=== PATIENT | female | born 1965 | race African-American/Black ===

== ENCOUNTER 2017-02-17 14:17 | Inpatient (IN) ==
[2017-02-17] MEDS ORDERED: DEXTROSE 50% 25 GM/50 ML VIAL IV PRN ×2 (14:27)
[2017-02-17] MEDS ORDERED: GLUCAGON 1 MG VIAL IM PRN ×2 (14:27)
[2017-02-17] MEDS ORDERED: MORPHINE 2 MG/1 ML SYRINGE IV PRN (14:37)
--- NOTE | 2017-02-17 14:40 | Nephrology History & Physical ---
History of Present Illness Chief complaint: facial swelling, dental abscess History of present illness: Ms. De Los Santos is a 52 year old female with history of renal transplant for over 10 years with a creatinine that is 1 who had been doing well up until last week when she noticed swelling in her face. She went to her local dentist where she was found to have a dental abscess. She started on oral antibiotics however, the symptoms continued to worsen. There was no shortness of breath or chest pain. However she has noticed increased swelling of the left eye as well. She denies any fevers. Home Medications Medication Instructions Recorded Confirmed Type Aspirin [Ecotrin] 81 mg PO DAILY 05/03/15 05/14/15 History Clopidogrel [Plavix] 75 mg PO DAILY 05/03/15 05/14/15 History Colchicine [Colcrys] 0.6 mg PO DAILY 05/03/15 05/14/15 History Ergocalciferol (Vitamin D2) 2,000 unit PO DAILY 05/03/15 05/14/15 History [Vitamin D2] Furosemide Tab [Lasix Tab] 40 mg PO DAILY 05/03/15 05/14/15 History Glimepiride [Amaryl] 2 mg PO BID 05/03/15 05/14/15 History Lisinopril [Zestril] 20 mg PO BID 05/03/15 05/14/15 History Magnesium Chloride [Mag Delay] 64 mg PO TID 05/03/15 05/14/15 History Mycophenolate Mofetil [Cellcept] 1,000 mg PO BID 05/03/15 05/14/15 History Omeprazole [Prilosec] 40 mg PO BID 05/03/15 05/14/15 History Tacrolimus Cap [Prograf] 1 mg PO BID 05/03/15 05/14/15 History predniSONE TAB [PredniSONE] 5 mg PO DAILY 05/03/15 05/14/15 History Carvedilol [Coreg] 25 mg PO BID 05/09/15 05/21/15 History Estradiol [Estradiol Tab] 2 mg PO 05/09/15 05/14/15 History HYDROcodone/ACETAMIN 5-325 [[place] 1 tablet PO Q6H PRN 05/09/15 05/21/15 History 5-325] Allergies Allergy/AdvReac Type Severity Reaction Status Date / Time vancomycin Allergy Verified 06/25/15 06:56 Review of Systems Constitutional: fatigue, lethargy, no anorexia, no chills Eyes: left: bulging eye Nose, mouth and throat: nasal congestion, neck pain, sinus pressure, other ( facial swelling, pain,) Cardiovascular: no chest pain at rest, no chest pain with activity Respiratory: no cough Gastrointestinal: no abdominal pain, no bloating Medical,Surgical,& Family Hx - Medical History Cardio: History of: CAD, Hypertension Neurology: History of: Migraine No history of: Seizures Endocrine: History of: Diabetes Mellitus (NIDDM) Rheumatology: History of;: Gout (toes) Respiratory: History of: Obstructive Sleep Apnea (c-pap) Renal: History of: Renal Problems (renal failure..was on dialysis for 7 years) Gastrointestinal: History of: GERD, Gastrointestinal Bleed, Hemorrhoids Reproductive: History of: Abnormal Pap Smear - Surgical History Cardiac Surgeries: Sugical HX of: Cardiac Catheterization, Cardiac Surgery (2 stents placed in 2013-in [place]-dr. oliveira) Thoracic Surgeries: Surgical HX of;: Kidney (Renal Surgery) (2002 kidney transplant), Organ Transplant (kidney) Abdominal Surgeries: Surgical HX of: Appendectomy, Colonoscopy (2010), EGD Patient denies: Cholecystectomy Reproductive Surgeries: Surgical HX of;: Hysterectomy - Family History Family History: Reports;: Family Diabetes (mother,sisters), Family Hypertension (mother), Family Stroke (father) - Social History Smoking Status: Never smoker Exam - Nephrology - Vital Signs Exam: Facial swelling oropharynx abscess of the upper gumline Poor dentition - General Appearance General appearance: well-developed, moderate distress Neck: no JVD Respiratory: clear Cardiology: regular rate, regular rhythm Gastrointestinal: normoactive bowel sounds, no tenderness, no guarding Integumentary: no rash Neurologic: alert and oriented x3, CN 3-12 intact Musculoskeletal: no deformities Psychiatric: mood/affect appropriate, cooperative Assessment and Plan (1) Renal transplant recipient Status: Chronic (2) Dental abscess Status: Acute Assessment and plan: Broad spectrum antibiotics Consult to Dr. Jasso CT of the neck, nasopharynx, malliary sinuses (3) Hypertension Status: Chronic (4) Gout Status: Chronic
[2017-02-17 17:04] LABS: Basophils % 0.1 % (0.0-0.8); Eosinophils % 0.3 % (0.00-10.9); Hematocrit 37.8 VOL% (35.7-47.0); Hemoglobin 11.7 GM/DL (12.0-16.0); Immature Granulocytes % 0.4 %; Immature Granulocytes Absolute 0.03 #; Lymphocytes # 1.6 10*3/uL (1.4-4.0); Lymphocytes % 21.8 % (21.3-54.2); Mean Corpuscular Hemoglobin 29 PG (27-34); Mean Corpuscular Volume 93.3 FL (87-102); Mean Platelet Volume 12.3 FL (9.6-12.0); Monocytes # 0.7 10*3/uL (0.11-0.8); Monocytes % 10.1 % (1.7-12.7); Neutrophils # 4.9 10*3/uL (1.4-7.4); Neutrophils % 67.3 % (38.7-73.9); Platelet Count 176 T/CUMM (130-400); Red Blood Count 4.05 MC/CUMM (3.8-5.5); Red Cell Distribution Width 11.9 % (9.3-17.3); White Blood Count 7.2 T/CUMM (4-12)
[2017-02-17 17:22] LABS: Albumin 2.9 G/DL (3.4-5.0); Bilirubin,Total 0.6 MG/DL (0.2-1.0); Calcium 8.8 MG/DL (8.5-10.1); Osmolality,Calculated 277.7 MOS/KG (273-304); Potassium 3.4 MMOL/L (3.5-5.1); Total Protein 6.5 G/DL (6.4-8.3)
[2017-02-17] MEDS: SODIUM CHLORIDE 0.45% 1,000 ML IV SCH (17:23)
[2017-02-17] MEDS: ALBUTEROL/IPRATROPIUM 3 ML NEB RESP TX SCH ×3 (17:57→23:51)
--- NOTE | 2017-02-17 18:07 | CT Report ---
CT soft tissue neck wo con Indication: Dental abscess. Facial swelling. CT NECK without CONTRAST DLP: 351 mGy*cm. One or more of the following dose reduction techniques was used: Automated exposure control, adjustment of the mA and/or kV according the patient size, or use of iterative reconstruction techniques. Comparison: None Technique: Axial noncontrast CT images of the neck were obtained. Findings:There is a 14 x 28 mm density along the left maxillary ridge, presumably the above-mentioned abscess. Severe mucosal thickening of the left maxillary sinus is present, and there appears to be some mild bony erosion of the lateral alveolar ridge of the maxilla adjacent to the presumed abscess pocket. The right maxillary sinus, ethmoid, frontal and sphenoid air cells are clear. Mastoid air cells are clear as well. Mandible is intact. Temporomandibular joints are probably aligned. Impression: Periodontal abscess and mild bony erosion adjacent to the left maxillary alveolar ridge. Left maxillary sinusitis, relatively severe. PROCEDURE INTERPRETED AT [facility] DEPARTMENT OF RADIOLOGY Final Report Signed by: Chester Jenkins M.D.
--- NOTE | 2017-02-17 18:10 | XRay Report ---
XR chest 2V Indication: Shortness of breath. Chest 2 views: Comparison 03/24/2012. Heart size and mediastinal contour are normal. Lungs are hypoinflated but generally clear, except for minimal bibasilar atelectasis. Pleural spaces are clear. Bones are intact. Impression: Mild pulmonary hypoinflation with atelectasis. PROCEDURE INTERPRETED AT [facility] DEPARTMENT OF RADIOLOGY Final Report Signed by: Chester Jenkins M.D.
--- NOTE | 2017-02-17 18:10 | CT Report ---
CT mastoids wo con Indication: Facial swelling. Left periodontal maxillary abscess. CT mastoids without contrast Technique: Axial thin cut CT images through the temporal bones were obtained with coronal and sagittal reconstructions. Comparison: None. Findings: Nodular mucosal thickening of the left maxillary sinus is relatively severe anteriorly. There is a trace amount of mucosal thickening at the floor of the right maxillary sinus. Mastoid air cells are clear. Middle ear structures are well defined bilaterally, with normal auditory ossicles present. No evidence of cholesteatoma. Both scutum are well-defined in the attics are clear. No dehiscence of the inner table. Semicircular canals and cochlea are unremarkable and bilaterally symmetric. Impression: 1. Normal appearing mastoid air cells and middle ears structures. 2. Relatively severe left and minimal right maxillary sinusitis. PROCEDURE INTERPRETED AT [facility] DEPARTMENT OF RADIOLOGY Final Report Signed by: Chester Jenkins M.D.
[2017-02-17] MEDS: PIPERACILLIN/TAZOBACTAM 3,375 MG in SODIUM CHLORIDE 0.9% 100 ML IV SCH (18:24)
[2017-02-17] MEDS: MAGNESIUM CHLORIDE 64 MG TABLET PO SCH (20:46)
[2017-02-17] MEDS: PANTOPRAZOLE 40 MG TABLET PO SCH (20:47)
[2017-02-17] MEDS: SIMVASTATIN 20 MG TABLET PO SCH (20:47)
[2017-02-17] MEDS: amLODIPine 5 MG TABLET PO SCH (20:47)
[2017-02-17] MEDS: CARVEDILOL 25 MG TABLET PO SCH (20:47)
[2017-02-17] MEDS: MYCOPHENOLATE MOFETIL 1000 MG PO SCH (20:51)
[2017-02-17] MEDS: TACROLIMUS 0.5 MG PO SCH (20:52)
[2017-02-17] MEDS ORDERED: ENOXAPARIN 30 MG/0.3 ML SYRINGE SUBCUT SCH (21:00)
[2017-02-17 21:47] LABS: Apearance,Urine Slightly Hazy (Clear); Bacteria,Urine Occasional /HPF (Few); Bilirubin,Urine Negative (Negative); Blood, Urine Negative (Negative); Glucose,Urine (UA) Negative (Negative); Ketones,Urine Negative (Negative); Mucus,Urine Occasional /LPF (Occasional); Nitrite,Urine Negative (Negative); Protein,Urine >=500 MG/DL; RBC,Urine 4 /HPF (0-4); Renal Epithelial Cells,Urine Occasional /HPF (<1); Squamous Epithelial Cell,Urine Occasional /HPF (0-10); Urine Color Yellow (Yellow); Urine Urobilinogen < 2.0 EU/DL (0.2-1.0); WBC,Urine 7 /HPF (0-6)
[2017-02-18] MEDS: PIPERACILLIN/TAZOBACTAM 3,375 MG in SODIUM CHLORIDE 0.9% 100 ML IV SCH ×3 (00:25→16:36)
[2017-02-18] MEDS: ALBUTEROL/IPRATROPIUM 3 ML NEB RESP TX SCH ×6 (04:40→23:39)
[2017-02-18 05:28] LABS: Basophils % 0.2 % (0.0-0.8); Eosinophils % 0.3 % (0.00-10.9); Hematocrit 33.2 VOL% (35.7-47.0); Hemoglobin 10.7 GM/DL (12.0-16.0); Immature Granulocytes % 0.3 %; Immature Granulocytes Absolute 0.02 #; Lymphocytes # 2.2 10*3/uL (1.4-4.0); Lymphocytes % 36.3 % (21.3-54.2); Mean Corpuscular HGB Conc 32.2 GM/DL (32-36); Mean Corpuscular Hemoglobin 29 PG (27-34); Mean Corpuscular Volume 88.8 FL (87-102); Mean Platelet Volume 12.5 FL (9.6-12.0); Monocytes # 0.7 10*3/uL (0.11-0.8); Monocytes % 10.9 % (1.7-12.7); Neutrophils # 3.2 10*3/uL (1.4-7.4); Platelet Count 154 T/CUMM (130-400); Red Blood Count 3.74 MC/CUMM (3.8-5.5); Red Cell Distribution Width 11.9 % (9.3-17.3); White Blood Count 6.1 T/CUMM (4-12)
[2017-02-18 06:03] LABS: Calcium 8.6 MG/DL (8.5-10.1); Osmolality,Calculated 276.8 MOS/KG (273-304)
[2017-02-18] MEDS: SODIUM CHLORIDE 0.45% 1,000 ML IV SCH ×2 (09:09)
[2017-02-18] MEDS: PANTOPRAZOLE 40 MG TABLET PO SCH ×2 (09:10→21:34)
[2017-02-18] MEDS: MYCOPHENOLATE MOFETIL 1000 MG PO SCH ×2 (09:11→21:36)
[2017-02-18] MEDS: CARVEDILOL 25 MG TABLET PO SCH ×2 (09:11→21:34)
[2017-02-18] MEDS: TACROLIMUS 0.5 MG PO SCH ×2 (09:11→21:36)
[2017-02-18] MEDS: MAGNESIUM CHLORIDE 64 MG TABLET PO SCH ×3 (09:11→21:33)
[2017-02-18] MEDS: ASPIRIN EC 81 MG TABLET PO SCH (09:11)
[2017-02-18] MEDS: ERGOCALCIFEROL 1000 UNIT PO SCH (09:12)
[2017-02-18] MEDS: amLODIPine 5 MG TABLET PO SCH ×2 (09:24→21:34)
[2017-02-18] MEDS: ESTRADIOL 1 MG TABLET PO SCH (09:24)
--- NOTE | 2017-02-18 10:54 | Physician Query Form ---
CLICK EDIT DOCUMENT TO SELECT QUERY ANSWER --> OK --> SIGN Cristina Andrew RN Clinical Motor Grader Operator W) [phone] (f) [phone] [email or web address] PROVIDERS: Make your selection(s) from the choices in EACH section by typing an "x" and enter comments in the comment section. Please use your independent medical judgment in providing your response. This request does not imply that any particular answer is desired or expected. CLINICAL INDICATORS: (Providers should not edit this section) Height: 5ft 11in Weight: 287 lbs Financial Foundations Representative BMI: 40.0 Cash Applications Coordinator Notes: Class 3 obesity If applicable, please provide an associated diagnosis related to the abnormal BMI: BMI of 40 or greater: ( ) Overweight (x ) Obesity ( ) Morbid//Severe Obesity ( ) Obesity with Alveolar Hypoventilation ( ) Weight Gain ( ) BMI is not significant ( ) Other, please specify: ( ) Clinically unable to determine COMMENTS: Use of terms such as suspected, likely, or probable (associated with a specific diagnosis that is being evaluated, monitored, or treated as if it exists) are acceptable and can be restated in the discharge summary if not ruled out. [facility]
--- NOTE | 2017-02-18 16:28 | General Surgery Consult Note ---
Assessment and Plan - Time spent with patient Time spent with patient: Less than 30 minutes (1) Dental abscess Status: Acute Assessment and plan: 58 yo F with left canine space abscess likely due to carious teeth #12,13 requiring Incision and drainage and extraction of teeth #12, 13 in OR tomorrow 1. NPO at midnight 2. cont iv antibiotics, pain control per Dr. Duran 3. Will consent for Incision and drainage of left maxillary canine space abscess and extraction of teeth #12 and 13 4. Will schedule for 02/19 around noon Current Visit: Yes History of Present Illness Chief complaint: left facial swelling History of present illness: Ms. De Los Santos is a 52 year old female with 5 days of left facial swelling, initially worsening but improved since admission yesterday while on IV antibiotics. No dysphagia, no dyspnea, no f/c. Had seen local dentist who recommended extraction of teeth #12,13 but patient never had it done. Home Medications Medication Instructions Recorded Confirmed Type Aspirin [Ecotrin] 81 mg PO DAILY 05/03/15 02/17/17 History Colchicine [Colcrys] 0.6 mg PO DAILY PRN 05/03/15 02/17/17 History Ergocalciferol (Vitamin D2) 1,000 unit PO DAILY 05/03/15 02/17/17 History [Vitamin D2] Furosemide Tab [Lasix Tab] 20 mg PO BID 05/03/15 02/17/17 History Magnesium Chloride [Mag Delay] 64 mg PO TID 05/03/15 02/17/17 History Mycophenolate Mofetil [Cellcept] 1,000 mg PO BID 05/03/15 02/17/17 History Omeprazole [Prilosec] 40 mg PO BID 05/03/15 02/17/17 History Tacrolimus Cap [Prograf] 0.5 mg PO BID 05/03/15 02/17/17 History Carvedilol [Coreg] 25 mg PO BID 05/09/15 02/17/17 History Estradiol [Estradiol Tab] 2 mg PO DAILY 05/09/15 02/17/17 History Amoxicillin/Potassium Clav 875 mg PO BID 02/17/17 02/17/17 History [Amox-Clav 875-125 mg Tablet] Hydrocodone/Acetaminophen 1 tablet PO Q4HR PRN 02/17/17 02/17/17 History [Hydrocodon-Acetaminoph 7.5-325] Simvastatin 20 mg PO BEDTIME 02/17/17 02/17/17 History amLODIPine [Norvasc] 5 mg PO BID 02/17/17 02/17/17 History metFORMIN [Glucophage] 500 mg PO DAILY W/SUPPER 02/17/17 02/17/17 History Allergies Allergy/AdvReac Type Severity Reaction Status Date / Time vancomycin Allergy Verified 05/03/15 06:56 Medical,Surgical,& Family Hx - Medical History Cardio: History of: CAD, Hypertension Neurology: History of: Cerebrovascular Accident, Migraine No history of: Seizures Endocrine: History of: Diabetes Mellitus (NIDDM) Rheumatology: History of;: Gout (toes) Respiratory: History of: Asthma, Obstructive Sleep Apnea (c-pap) Renal: History of: Renal Problems (renal failure..was on dialysis for 7 years) Gastrointestinal: History of: GERD, Gastrointestinal Bleed, Hemorrhoids Reproductive: History of: Abnormal Pap Smear - Surgical History Cardiac Surgeries: Sugical HX of: Cardiac Catheterization, Cardiac Surgery (2 stents placed in 2013-in [place]-dr. oliveira) Thoracic Surgeries: Surgical HX of;: Kidney (Renal Surgery) (2002 kidney transplant), Organ Transplant (kidney) Abdominal Surgeries: Surgical HX of: Appendectomy, Colonoscopy (2010), EGD Patient denies: Cholecystectomy Reproductive Surgeries: Surgical HX of;: Hysterectomy - Family History Family History: Reports;: Family Diabetes (mother,sisters), Family Hypertension (mother), Family Stroke (father) - Social History Smoking Status: Never smoker Frequency of Alcohol Use: None Type of Drug Use: None - EENT Nose, mouth and throat: Present: other (left facial swelling, mildly involving left infraorbital region, mild left maxillary vestibular swelling with drainage) Exam - Constitutional Vitals: Period Temp Pulse Resp BP Sys/Correa Pulse Ox Last 24 Hr 97.4 F-99.6 F 70-99 18-20 125-144/64-84 90-98 General appearance: no acute distress - Eye Eye exam: Present: EOMI, periorbital swelling (left infraorbital region) - ENT ENT exam: Present: other (left facial swelling with tenderness to palpation; mild erythema; no warmth) Mouth exam: Present: other (carious teeht #12 and 13 with left maxillary vestibular swelling and tenderness on palpation, no drainage) Results - Labs CBC & BMP: 02/18/17 05:01 02/18/17 05:01 Lab Results: I have reviewed the past 24 hour labs - Impressions 52 yo F with 5 day history of left canine space abscess likely due to carious teeth #12,13 which will require extraction of teeth and I&D
[2017-02-18] MEDS: metFORMIN 500 MG TABLET PO SCH (16:36)
--- NOTE | 2017-02-18 17:43 | Ophthalmology Consultation ---
Assessment and Plan - Time spent with patient Time spent with patient: Less than 30 minutes (1) Preseptal cellulitis of left eye Status: Acute Assessment and plan: Mild preseptal cellulitis of the left eye and face. Origin is most likely dental abscess. Patient reports subjective improvement since starting IV antibiotics. No signs of orbital extension or ocular involvement on exam. Recommendations: Continue IV Zosyn. Warm compresses to left periorbital area. Will follow along until discharge. Current Visit: Yes History of Present Illness Chief complaint: Swelling of periorbital area OS. History of present illness: Ms. De Los Santos is a 52 year old female admitted with a dental abscess and associated swelling of her face, including periorbital area OS. She denies any diplopia or orbital pain. She is having some blurred vision but wears corrective spectacles and does not have those with her today. She describes a slight bit of tenderness to the left upper eyelid and periorbital area. She states that the edema has improved since starting the IV antibiotics. Home Medications Medication Instructions Recorded Confirmed Type Aspirin [Ecotrin] 81 mg PO DAILY 05/03/15 02/17/17 History Colchicine [Colcrys] 0.6 mg PO DAILY PRN 05/03/15 02/17/17 History Ergocalciferol (Vitamin D2) 1,000 unit PO DAILY 05/03/15 02/17/17 History [Vitamin D2] Furosemide Tab [Lasix Tab] 20 mg PO BID 05/03/15 02/17/17 History Magnesium Chloride [Mag Delay] 64 mg PO TID 05/03/15 02/17/17 History Mycophenolate Mofetil [Cellcept] 1,000 mg PO BID 05/03/15 02/17/17 History Omeprazole [Prilosec] 40 mg PO BID 05/03/15 02/17/17 History Tacrolimus Cap [Prograf] 0.5 mg PO BID 05/03/15 02/17/17 History Carvedilol [Coreg] 25 mg PO BID 05/09/15 02/17/17 History Estradiol [Estradiol Tab] 2 mg PO DAILY 05/09/15 02/17/17 History Amoxicillin/Potassium Clav 875 mg PO BID 02/17/17 02/17/17 History [Amox-Clav 875-125 mg Tablet] Hydrocodone/Acetaminophen 1 tablet PO Q4HR PRN 02/17/17 02/17/17 History [Hydrocodon-Acetaminoph 7.5-325] Simvastatin 20 mg PO BEDTIME 02/17/17 02/17/17 History amLODIPine [Norvasc] 5 mg PO BID 02/17/17 02/17/17 History metFORMIN [Glucophage] 500 mg PO DAILY W/SUPPER 02/17/17 02/17/17 History Allergies Allergy/AdvReac Type Severity Reaction Status Date / Time vancomycin Allergy Verified 05/03/15 06:56 Medical,Surgical,& Family Hx - Medical History Cardio: History of: CAD, Hypertension Neurology: History of: Cerebrovascular Accident, Migraine No history of: Seizures Endocrine: History of: Diabetes Mellitus (NIDDM) Rheumatology: History of;: Gout (toes) Respiratory: History of: Asthma, Obstructive Sleep Apnea (c-pap) Renal: History of: Renal Problems (renal failure..was on dialysis for 7 years) Gastrointestinal: History of: GERD, Gastrointestinal Bleed, Hemorrhoids Reproductive: History of: Abnormal Pap Smear - Surgical History Cardiac Surgeries: Sugical HX of: Cardiac Catheterization, Cardiac Surgery (2 stents placed in 2013-in [place]-dr. oliveira) Thoracic Surgeries: Surgical HX of;: Kidney (Renal Surgery) (2002 kidney transplant), Organ Transplant (kidney) Abdominal Surgeries: Surgical HX of: Appendectomy, Colonoscopy (2010), EGD Patient denies: Cholecystectomy Reproductive Surgeries: Surgical HX of;: Hysterectomy - Family History Family History: Reports;: Family Diabetes (mother,sisters), Family Hypertension (mother), Family Stroke (father) - Social History Smoking Status: Never smoker Frequency of Alcohol Use: None Type of Drug Use: None Ophthalmology Exam - Constitutional Vitals: Vital Signs Temp Pulse Resp BP Pulse Ox 97.4 F L 77 18 144/68 97 02/18/17 15:54 02/18/17 15:54 02/18/17 15:54 02/18/17 15:54 02/18/17 15:54 Intake and Output 02/18/17 02/18/17 02/18/17 07:59 15:59 23:59 Intake Total 1220 / 1220 100 / 100 Output Total 400 / 400 Balance 820 / 820 100 / 100 Intake: IV 1100 / 1100 100 / 100 Zosyn 3,375 mg In Ns 100 100 / 100 100 / 100 ml @ 25 mls/hr IV Q8H JUAN Rx#:[id number] 1/2Ns 1,000 ml @ 125 mls/ 1000 / 1000 hr IV .Q8H JUAN Rx#: [id number] Oral 120 / 120 Output: Urine 400 / 400 Other: Voiding Method Toilet Toilet # Voids 3 # Bowel Movements 0 General appearance: no acute distress - Eye Eye exam: Present: EOMI, periorbital swelling (Edema and erythema of the left periorbital area.), other Pupils: Present: LIZ - Expanded Eye Exam Eye Exam Eyelids: left: erythema, swelling eyelids (Mild periorbital edema of the left eye.) Pupils: Bilateral: regular, round, reactive (No relative afferent pupillary defect.) Sclera: bilateral: normal inspection, injection (No injection or chemosis) Anterior chamber: bilateral: normal inspection Posterior chamber: bilateral: deferred Results - Labs CBC & BMP: 02/18/17 05:01 02/18/17 05:01
[2017-02-18] MEDS ORDERED: POTASSIUM CHLORIDE 20 MEQ TABLET PO ONE (20:12)
--- NOTE | 2017-02-18 20:15 | Nephrology Progress Note ---
Nephrology - PN: Subj Interval history: The patient is sitting up resting comfortably. Facial swelling continues to show signs of improvement no fevers or chills. She has been evaluated by oral surgery and is scheduled for surgery on tomorrow. Appreciate input from Dr. Burton as well as from Dr. Dean. Will discontinue prophylactic dose of Lovenox in preparation for surgery. Exam (PN)-Nephrology - Vital Signs Vital signs: Period Temp Pulse Resp BP Sys/Correa Pulse Ox Last 24 Hr 97.4 F-99.2 F 70-99 18-20 125-144/64-71 90-99 - General Appearance General appearance: well-developed, well-nourished EENT: ATNC Neck: supple Respiratory: clear Cardiology: no edema, regular rate, regular rhythm Gastrointestinal: normoactive bowel sounds, no tenderness Integumentary: warm and dry Neurologic: alert and oriented x3, CN 3-12 intact Musculoskeletal: no clubbing Psychiatric: mood/affect appropriate - Lab 02/18/17 05:01 02/18/17 05:01 Most recent lab results Calcium 8.6 MG/DL (8.5-10.1) 02/18/17 05:01 Assessment and Plan (1) Renal transplant recipient Status: Chronic Current Visit: Yes (2) Dental abscess Status: Acute Assessment and plan: Broad spectrum antibiotics Consult to Dr. Jasso Current Visit: Yes (3) Hypertension Status: Chronic Current Visit: Yes (4) Gout Status: Chronic Current Visit: Yes (5) Hypokalemia Status: Acute Assessment and plan: Supplement potassium with 40 mEq p.o. tonight. At potassium and IV fluids. Check BMP and magnesium in a.m. Current Visit: Yes
[2017-02-18] MEDS: SIMVASTATIN 20 MG TABLET PO SCH (21:34)
[2017-02-18] MEDS: CHLORHEXIDINE 0.12% ORAL RINSE 60 ML BOTTLE SWISH/SPIT SCH (21:34)
[2017-02-18] MEDS: SODIUM CHLOR 0.45% KCL 20 MEQ 20 MEQ/1,000 ML BAG IV SCH (21:39)
[2017-02-19] MEDS: SODIUM CHLOR 0.45% KCL 20 MEQ 20 MEQ/1,000 ML BAG IV SCH ×2 (00:13→09:20)
[2017-02-19] MEDS: PIPERACILLIN/TAZOBACTAM 3,375 MG in SODIUM CHLORIDE 0.9% 100 ML IV SCH ×4 (00:14→23:49)
[2017-02-19] MEDS: SODIUM CHLORIDE 0.45% 1,000 ML IV SCH (02:22)
[2017-02-19] MEDS: ALBUTEROL/IPRATROPIUM 3 ML NEB RESP TX SCH ×6 (03:38→23:41)
[2017-02-19 06:09] LABS: Basophils % 0.2 % (0.0-0.8); Eosinophils # 0.1 10*3/uL (0.0-0.87); Eosinophils % 2.5 % (0.00-10.9); Immature Granulocytes % 0.2 %; Immature Granulocytes Absolute 0.01 #; Lymphocytes # 1.6 10*3/uL (1.4-4.0); Lymphocytes % 32.2 % (21.3-54.2); Mean Corpuscular HGB Conc 32.4 GM/DL (32-36); Mean Corpuscular Hemoglobin 29 PG (27-34); Mean Corpuscular Volume 89.2 FL (87-102); Monocytes # 0.6 10*3/uL (0.11-0.8); Neutrophils # 2.6 10*3/uL (1.4-7.4); Neutrophils % 52.9 % (38.7-73.9); Platelet Count 163 T/CUMM (130-400); Red Blood Count 3.81 MC/CUMM (3.8-5.5); Red Cell Distribution Width 11.5 % (9.3-17.3); White Blood Count 4.8 T/CUMM (4-12)
[2017-02-19 06:40] LABS: Calcium 8.9 MG/DL (8.5-10.1); Magnesium 1.5 MG/DL (1.8-2.4); Osmolality,Calculated 280.4 MOS/KG (273-304); Potassium 3.6 MMOL/L (3.5-5.1)
[2017-02-19] MEDS ORDERED: MAGNESIUM SULF RIDER 2 GM in PREMIX 1 EACH IV ONE (08:00)
[2017-02-19] MEDS: ESTRADIOL 1 MG TABLET PO SCH (08:27)
[2017-02-19] MEDS: TACROLIMUS 0.5 MG PO SCH ×2 (08:28→20:17)
[2017-02-19] MEDS: MAGNESIUM CHLORIDE 64 MG TABLET PO SCH ×3 (08:28→20:10)
[2017-02-19] MEDS: ASPIRIN EC 81 MG TABLET PO SCH (08:28)
[2017-02-19] MEDS: MYCOPHENOLATE MOFETIL 1000 MG PO SCH ×2 (08:28→20:14)
[2017-02-19] MEDS: PANTOPRAZOLE 40 MG TABLET PO SCH ×2 (08:28→20:10)
[2017-02-19] MEDS: CHLORHEXIDINE 0.12% ORAL RINSE 60 ML BOTTLE SWISH/SPIT SCH ×2 (08:28→20:16)
[2017-02-19] MEDS: CARVEDILOL 25 MG TABLET PO SCH ×2 (08:28→20:10)
[2017-02-19] MEDS: amLODIPine 5 MG TABLET PO SCH ×2 (08:28→20:10)
[2017-02-19] MEDS: ERGOCALCIFEROL 1000 UNIT PO SCH (08:29)
--- NOTE | 2017-02-19 10:59 | EKG Report ---
Stationary ECG Study [facility] Test Date: 02/19/2017 11:00:16 AM Pat Name: ELIOT ANN Department: Room: 542 Gender: F Clinical Data Manager: KEMI : 1965 Requested by: Geoff De La Rosa Order Number: [id number] Reading MD: ANG VARGAS Intervals Shorter Rate: 72 P: 70 WA: 184 QRS: 14 QRSD: 89 T: -24 QT: 352 QTc: 376 Interpretive Statements SINUS RHYTHM NONSPECIFIC T-WAVE ABNORMALITY Electronically Signed On 02-20-17 07:26:51 CDT by ANG VARGAS [email or web address]
[2017-02-19] MEDS ORDERED: LIDOCAINE 2%/EPI 20 ML VIAL ONE (12:08)
--- NOTE | 2017-02-19 12:49 | Operative Note ---
Date of procedure: 02/19/17 Pre-op diagnosis: left maxillary canine space abcess and carious teeth #12,13 Post-op diagnosis: same Procedure: Incision & drainage left maxillary canine space abscess, surgical extraction of teeth #12,13 Anesthesia: PATRICA Surgeon / Physician: Willy Jasso Estimated blood loss: none Specimens: other (teeth #12,13) Condition: stable Disposition: floor Results - Labs CBC & BMP: 02/19/17 05:52 02/19/17 05:52 Discharge Plan - Discharge Medications No Action Ergocalciferol (Vitamin D2) [Vitamin D2] 1,000 unit PO DAILY Tacrolimus Cap [Prograf] 0.5 mg PO BID Omeprazole [Prilosec] 40 mg PO BID Magnesium Chloride [Mag Delay] 64 mg PO TID Furosemide Tab [Lasix Tab] 20 mg PO BID Mycophenolate Mofetil [Cellcept] 1,000 mg PO BID Colchicine [Colcrys] 0.6 mg PO DAILY PRN PRN Reason: Gout Aspirin [Ecotrin] 81 mg PO DAILY Carvedilol [Coreg] 25 mg PO BID Estradiol [Estradiol Tab] 2 mg PO DAILY metFORMIN [Glucophage] 500 mg PO DAILY W/SUPPER Hydrocodone/Acetaminophen [Hydrocodon-Acetaminoph 7.5-325] 1 tablet PO Q4HR PRN PRN Reason: Pain amLODIPine [Norvasc] 5 mg PO BID Amoxicillin/Potassium Clav [Amox-Clav 875-125 mg Tablet] 875 mg PO BID Simvastatin 20 mg PO BEDTIME - Follow Up or Referral - Forms/Instructions
[2017-02-19] MEDS ORDERED: SUCCINYLCHOLINE 200 MG/10 ML VIAL ONE (13:00)
[2017-02-19] MEDS ORDERED: ROCURONIUM 100 MG/10 ML VIAL IV ONE (13:00)
[2017-02-19] MEDS ORDERED: PROPOFOL 200 MG/20 ML VIAL IV ONE (13:00)
[2017-02-19] MEDS ORDERED: LIDOCAINE 1% 5 ML VIAL ONE (13:00)
[2017-02-19] MEDS ORDERED: ONDANSETRON 4 MG/2 ML VIAL ONE (13:00)
[2017-02-19] MEDS ORDERED: fentaNYL 100 MCG/2 ML VIAL ONE (13:18)
[2017-02-19] MEDS ORDERED: MIDAZOLAM 2 MG/2 ML VIAL ONE (13:19)
[2017-02-19] MEDS ORDERED: ALBUTEROL/IPRATROPIUM 3 ML NEB RESP TX ONE (13:22)
[2017-02-19] MEDS: metFORMIN 500 MG TABLET PO SCH (16:04)
[2017-02-19] MEDS: SIMVASTATIN 20 MG TABLET PO SCH (20:10)
--- NOTE | 2017-02-19 22:32 | Nephrology Progress Note ---
Nephrology - PN: Subj Interval history: Patient is resting comfortably. Tolerated oral surgery today. Exam (PN)-Nephrology - Vital Signs Vital signs: Period Temp Pulse Resp BP Sys/Correa Pulse Ox Last 24 Hr 97.0 F-98.9 F 69-93 16-20 134-161/67-98 92-99 Exam: Left-sided facial swelling noted - General Appearance General appearance: well-developed, well-nourished EENT: ATNC Neck: supple Respiratory: clear Cardiology: regular rate, regular rhythm Gastrointestinal: normoactive bowel sounds, no tenderness, no guarding Musculoskeletal: no clubbing Psychiatric: mood/affect appropriate - Lab 02/19/17 05:52 02/19/17 05:52 Most recent lab results Calcium 8.9 MG/DL (8.5-10.1) 02/19/17 05:52 Magnesium 1.5 MG/DL (1.8-2.4) L 02/19/17 05:52 Assessment and Plan (1) Renal transplant recipient Status: Chronic Current Visit: Yes (2) Dental abscess Status: Acute Assessment and plan: Broad spectrum antibiotics Now status post oral surgery for abscess drainage. Current Visit: Yes (3) Hypertension Status: Chronic Current Visit: Yes (4) Gout Status: Chronic Current Visit: Yes (5) Hypokalemia Status: Acute Assessment and plan: At potassium and IV fluids. Check BMP in a.m. Current Visit: Yes
[2017-02-20] MEDS: SODIUM CHLOR 0.45% KCL 20 MEQ 20 MEQ/1,000 ML BAG IV SCH ×2 (00:27→08:47)
[2017-02-20] MEDS: ALBUTEROL/IPRATROPIUM 3 ML NEB RESP TX SCH ×6 (02:42→23:30)
[2017-02-20 07:18] LABS: Calcium 8.9 MG/DL (8.5-10.1); Osmolality,Calculated 277.5 MOS/KG (273-304); Potassium 3.8 MMOL/L (3.5-5.1)
[2017-02-20] MEDS: ASPIRIN EC 81 MG TABLET PO SCH (08:16)
[2017-02-20] MEDS: MAGNESIUM CHLORIDE 64 MG TABLET PO SCH ×3 (08:16→21:22)
[2017-02-20] MEDS: PIPERACILLIN/TAZOBACTAM 3,375 MG in SODIUM CHLORIDE 0.9% 100 ML IV SCH ×3 (08:16→23:55)
[2017-02-20] MEDS: CARVEDILOL 25 MG TABLET PO SCH ×2 (08:17→21:21)
[2017-02-20] MEDS: MYCOPHENOLATE MOFETIL 1000 MG PO SCH ×2 (08:17→21:22)
[2017-02-20] MEDS: CHLORHEXIDINE 0.12% ORAL RINSE 60 ML BOTTLE SWISH/SPIT SCH ×2 (08:17→21:23)
[2017-02-20] MEDS: PANTOPRAZOLE 40 MG TABLET PO SCH ×2 (08:17→21:22)
[2017-02-20] MEDS: amLODIPine 5 MG TABLET PO SCH ×2 (08:17→21:22)
[2017-02-20] MEDS: ESTRADIOL 1 MG TABLET PO SCH (08:17)
[2017-02-20] MEDS: TACROLIMUS 0.5 MG PO SCH ×2 (08:25→21:24)
[2017-02-20] MEDS: ERGOCALCIFEROL 1000 UNIT PO SCH (08:49)
--- NOTE | 2017-02-20 08:59 | Anesthesia ---
Anesthesia Post OP - Post Ansesthetic Evaluation Patient seen in post op: Yes Resp: within normal limits CV: within normal limits Mental: within normal limits Temp: within normal limits [id number]: within normal limits Nausea and Vomiting: within normal limits Pain: within normal limits
--- NOTE | 2017-02-20 09:01 | Nephrology Progress Note ---
Nephrology - PN: Subj Interval history: Patient is doing acceptable. Swelling is slowly improving. No fevers or chills. Metabolic panel is acceptable. Will continue with half-normal saline at 50 cc an hour. Continue antibiotics. Patient will be here through the weekend. BMP on Thursday. Exam (PN)-Nephrology - Vital Signs Vital signs: Period Temp Pulse Resp BP Sys/Correa Pulse Ox Last 24 Hr 97.0 F-98.8 F 72-93 16-20 130-161/69-98 90-99 Exam: Left facial swelling. There is swelling of the left eye. No injection but eyelids are swollen. - General Appearance General appearance: well-developed, well-nourished Neck: supple Respiratory: clear Cardiology: no edema, regular rate, regular rhythm Gastrointestinal: normoactive bowel sounds, no masses Neurologic: alert and oriented x3, CN 3-12 intact Musculoskeletal: no clubbing Psychiatric: mood/affect appropriate, cooperative - Lab 02/19/17 05:52 02/20/17 06:24 Most recent lab results Calcium 8.9 MG/DL (8.5-10.1) 02/20/17 06:24 Magnesium 1.5 MG/DL (1.8-2.4) L 02/19/17 05:52 Assessment and Plan (1) Renal transplant recipient Status: Chronic Current Visit: Yes (2) Dental abscess Status: Acute Assessment and plan: Broad spectrum antibiotics Now status post oral surgery for abscess drainage. Current Visit: Yes (3) Hypertension Status: Chronic Current Visit: Yes (4) Gout Status: Chronic Current Visit: Yes (5) Hypokalemia Status: Resolved Current Visit: Yes
[2017-02-20] MEDS: SODIUM CHLORIDE 0.45% 1,000 ML IV SCH (09:50)
[2017-02-20] MEDS: NEOMYCIN LEFT EYE SCH ×4 (10:48→21:26)
[2017-02-20] MEDS: POLYMYXIN LEFT EYE SCH ×4 (10:48→21:26)
[2017-02-20] MEDS: [UNRECOGNIZED DRUG - OTHER] LEFT EYE SCH ×4 (10:48→21:26)
--- NOTE | 2017-02-20 12:23 | Pathology Report from [facility] ---
ACCESSION # : [id number] PATIENT NAME : Alexandra Ann ORDERING DR : Willy Jasso DDS CLINICAL HX: Dental abscess POST-OP DX: Same SPECIMEN INFO: Teeth #12 & #13 GROSS DESCRIPTION: Specimen received in formalin labeled " ALEXANDRA ANN" consists of two teeth with decay noted. Submitted for gross exam only. DIAGNOSIS FOR ALEXANDRA ANN: Carious teeth (#12 & #13), gross only. SERVICE DATE: 02/19/2017 REPORT DATE: 02/20/2017 PATHOLOGIST: Kei Mcgowan M.D. [facility]
--- NOTE | 2017-02-20 14:14 | Ophthalmology Progress Note ---
Assessment and Plan - Time spent with patient Time spent with patient: Less than 30 minutes (1) Preseptal cellulitis of left eye Status: Acute Assessment and plan: Slowly improving with draining of dental abscess and IV abx. Recs: Broad spectrum abx. Artificial tears. Warm compresses. Current Visit: Yes Opthalmology - PN: Subj Interval history: Patient states vision is fine. No diplopia. C/O itching of left upper eyelid. Edema improving. Ophthalmology Exam - Constitutional Vitals: Vital Signs Temp Pulse Resp BP Pulse Ox 98.6 F 77 18 134/78 98 02/20/17 11:50 02/20/17 11:50 02/20/17 11:50 02/20/17 11:50 02/20/17 11:50 Intake and Output 02/19/17 02/20/17 02/20/17 23:59 07:59 15:59 Intake Total 460 / 460 250 / 250 490 / 490 Balance 460 / 460 250 / 250 490 / 490 Intake: IV 100 / 100 100 / 100 10 / 10 Zosyn 3,375 mg In Ns 100 100 / 100 100 / 100 ml @ 25 mls/hr IV Q8H JUAN Rx#:[id number] 1/2NS KCL 20 MEQ 20 meq 10 / 10 In 1,000 ml @ 75 mls/hr IV .[id number] JUAN Rx#: [id number] Oral 360 / 360 150 / 150 480 / 480 Other: Voiding Method Toilet Toilet Toilet # Voids 2 2 2 # Bowel Movements 0 0 General appearance: no acute distress - Eye Eye exam: Present: EOMI Pupils: Present: LIZ - Expanded Eye Exam Eye Exam Eyelids: left: erythema (Mild erythema ODILIA.), swelling eyelids (Mild edema ODILIA.) Pupils: Bilateral: regular, round, reactive (No RAPD) Sclera: bilateral: normal inspection (No chemosis.) Anterior chamber: bilateral: normal inspection Posterior chamber: bilateral: deferred Results - Labs CBC & BMP: 02/19/17 05:52 02/20/17 06:24
[2017-02-20] MEDS: metFORMIN 500 MG TABLET PO SCH (16:09)
[2017-02-20] MEDS: SIMVASTATIN 20 MG TABLET PO SCH (21:22)
[2017-02-21] MEDS: ALBUTEROL/IPRATROPIUM 3 ML NEB RESP TX SCH ×6 (05:25→23:23)
[2017-02-21] MEDS: SODIUM CHLORIDE 0.45% 1,000 ML IV SCH (08:42)
[2017-02-21] MEDS: PIPERACILLIN/TAZOBACTAM 3,375 MG in SODIUM CHLORIDE 0.9% 100 ML IV SCH ×3 (08:48→23:53)
[2017-02-21] MEDS: ESTRADIOL 1 MG TABLET PO SCH (08:49)
[2017-02-21] MEDS: ASPIRIN EC 81 MG TABLET PO SCH (08:49)
[2017-02-21] MEDS: amLODIPine 5 MG TABLET PO SCH ×2 (08:49→20:39)
[2017-02-21] MEDS: CHLORHEXIDINE 0.12% ORAL RINSE 60 ML BOTTLE SWISH/SPIT SCH ×2 (08:49→20:38)
[2017-02-21] MEDS: MAGNESIUM CHLORIDE 64 MG TABLET PO SCH ×3 (08:49→20:39)
[2017-02-21] MEDS: CARVEDILOL 25 MG TABLET PO SCH ×2 (08:50→20:39)
[2017-02-21] MEDS: PANTOPRAZOLE 40 MG TABLET PO SCH ×2 (08:50→20:39)
[2017-02-21] MEDS: TACROLIMUS 0.5 MG PO SCH ×2 (08:50→20:38)
[2017-02-21] MEDS: MYCOPHENOLATE MOFETIL 1000 MG PO SCH ×2 (08:50→20:37)
[2017-02-21] MEDS: ERGOCALCIFEROL 1000 UNIT PO SCH (08:52)
[2017-02-21] MEDS: NEOMYCIN LEFT EYE SCH ×4 (08:54→20:40)
[2017-02-21] MEDS: [UNRECOGNIZED DRUG - OTHER] LEFT EYE SCH ×4 (08:54→20:40)
[2017-02-21] MEDS: POLYMYXIN LEFT EYE SCH ×4 (08:54→20:40)
--- NOTE | 2017-02-21 16:09 | Nephrology Progress Note ---
Nephrology - PN: Subj Interval history: She states left facial swelling continues to decrease. No new symptoms Exam (PN)-Nephrology - Vital Signs Vital signs: Period Temp Pulse Resp BP Sys/Correa Pulse Ox Last 24 Hr 97.5 F-98.6 F 72-89 18-20 134-161/68-81 92-99 Exam: ENT: Mild periorbital swelling on the left Cardiovascular: Regular rate and rhythm. No murmur rub or gallop Lungs: Clear Extremities: No edema - Lab 02/19/17 05:52 02/20/17 06:24 Most recent lab results Calcium 8.9 MG/DL (8.5-10.1) 02/20/17 06:24 Magnesium 1.5 MG/DL (1.8-2.4) L 02/19/17 05:52 Assessment and Plan (1) Renal transplant recipient Status: Chronic Assessment and plan: 52-year-old woman with: * Transplant. Renal function remains excellent * Dental abscess * Preseptal cellulitis, left eye. Continue current antibiotics * Hypertension. Controlled Current Visit: Yes (2) Dental abscess Status: Acute Current Visit: Yes (3) Preseptal cellulitis of left eye Status: Acute Current Visit: Yes (4) Hypertension Status: Chronic Current Visit: Yes
[2017-02-21] MEDS: metFORMIN 500 MG TABLET PO SCH (16:28)
[2017-02-21] MEDS: SIMVASTATIN 20 MG TABLET PO SCH (20:39)
[2017-02-22] MEDS: SODIUM CHLORIDE 0.45% 1,000 ML IV SCH ×2 (00:28→23:51)
[2017-02-22] MEDS: ALBUTEROL/IPRATROPIUM 3 ML NEB RESP TX SCH ×6 (03:18→23:08)
[2017-02-22] MEDS: ASPIRIN EC 81 MG TABLET PO SCH (08:42)
[2017-02-22] MEDS: ESTRADIOL 1 MG TABLET PO SCH (08:42)
[2017-02-22] MEDS: MAGNESIUM CHLORIDE 64 MG TABLET PO SCH ×3 (08:42→20:56)
[2017-02-22] MEDS: TACROLIMUS 0.5 MG PO SCH ×2 (08:43→20:57)
[2017-02-22] MEDS: PIPERACILLIN/TAZOBACTAM 3,375 MG in SODIUM CHLORIDE 0.9% 100 ML IV SCH ×3 (08:43→23:49)
[2017-02-22] MEDS: amLODIPine 5 MG TABLET PO SCH ×2 (08:43→20:57)
[2017-02-22] MEDS: CARVEDILOL 25 MG TABLET PO SCH ×2 (08:43→20:56)
[2017-02-22] MEDS: PANTOPRAZOLE 40 MG TABLET PO SCH ×2 (08:43→20:56)
[2017-02-22] MEDS: POLYMYXIN LEFT EYE SCH ×4 (08:44→20:56)
[2017-02-22] MEDS: CHLORHEXIDINE 0.12% ORAL RINSE 60 ML BOTTLE SWISH/SPIT SCH ×2 (08:44→20:57)
[2017-02-22] MEDS: [UNRECOGNIZED DRUG - OTHER] LEFT EYE SCH ×4 (08:44→20:56)
[2017-02-22] MEDS: ERGOCALCIFEROL 1000 UNIT PO SCH (08:44)
[2017-02-22] MEDS: MYCOPHENOLATE MOFETIL 1000 MG PO SCH ×2 (08:44→20:57)
[2017-02-22] MEDS: NEOMYCIN LEFT EYE SCH ×4 (08:44→20:56)
--- NOTE | 2017-02-22 11:18 | Nephrology Progress Note ---
Nephrology - PN: Subj Interval history: No new symptoms today Exam (PN)-Nephrology - Vital Signs Vital signs: Period Temp Pulse Resp BP Sys/Correa Pulse Ox Last 24 Hr 97.2 F-98.6 F 72-90 17-20 149-161/63-93 93-100 Exam: ENT: Left periorbital edema decreased Cardiovascular: Regular rate and rhythm. No murmur rub or gallop Lungs: Clear Extremities: No edema - Lab 02/19/17 05:52 02/20/17 06:24 Most recent lab results Calcium 8.9 MG/DL (8.5-10.1) 02/20/17 06:24 Magnesium 1.5 MG/DL (1.8-2.4) L 02/19/17 05:52 Assessment and Plan (1) Renal transplant recipient Status: Chronic Assessment and plan: 52-year-old woman with: * Transplant. Renal function remains excellent * Dental abscess * Preseptal cellulitis, left eye. Continue current antibiotics * Hypertension. Controlled Current Visit: Yes (2) Dental abscess Status: Acute Current Visit: Yes (3) Preseptal cellulitis of left eye Status: Acute Current Visit: Yes (4) Hypertension Status: Chronic Current Visit: Yes
[2017-02-22] MEDS: POLYVINYL ALCOHOL 1.4% OPH SOLN 15 ML BOTTLE LEFT EYE PRN ×2 (14:45→16:35)
[2017-02-22] MEDS: metFORMIN 500 MG TABLET PO SCH (16:34)
[2017-02-22] MEDS: SIMVASTATIN 20 MG TABLET PO SCH (20:56)
[2017-02-23] MEDS: ALBUTEROL/IPRATROPIUM 3 ML NEB RESP TX SCH ×4 (02:32→14:03)
[2017-02-23 06:48] LABS: Calcium 9.1 MG/DL (8.5-10.1); Magnesium 1.4 MG/DL (1.8-2.4); Osmolality,Calculated 277.5 MOS/KG (273-304); Potassium 3.6 MMOL/L (3.5-5.1)
[2017-02-23] MEDS ORDERED: MAGNESIUM SULF RIDER 2 GM in PREMIX 1 EACH IV ONE (08:03)
[2017-02-23] MEDS: amLODIPine 5 MG TABLET PO SCH (08:25)
[2017-02-23] MEDS: MAGNESIUM CHLORIDE 64 MG TABLET PO SCH ×2 (08:25→14:05)
[2017-02-23] MEDS: PANTOPRAZOLE 40 MG TABLET PO SCH (08:25)
[2017-02-23] MEDS: ASPIRIN EC 81 MG TABLET PO SCH (08:25)
[2017-02-23] MEDS: CARVEDILOL 25 MG TABLET PO SCH (08:25)
[2017-02-23] MEDS: ESTRADIOL 1 MG TABLET PO SCH (08:25)
[2017-02-23] MEDS: ERGOCALCIFEROL 1000 UNIT PO SCH (08:28)
[2017-02-23] MEDS: MYCOPHENOLATE MOFETIL 1000 MG PO SCH (08:28)
[2017-02-23] MEDS: TACROLIMUS 0.5 MG PO SCH (08:28)
[2017-02-23] MEDS: CHLORHEXIDINE 0.12% ORAL RINSE 60 ML BOTTLE SWISH/SPIT SCH (08:32)
[2017-02-23] MEDS: POLYMYXIN LEFT EYE SCH ×2 (08:34→14:05)
[2017-02-23] MEDS: NEOMYCIN LEFT EYE SCH ×2 (08:34→14:05)
[2017-02-23] MEDS: [UNRECOGNIZED DRUG - OTHER] LEFT EYE SCH ×2 (08:34→14:05)
[2017-02-23] MEDS: PIPERACILLIN/TAZOBACTAM 3,375 MG in SODIUM CHLORIDE 0.9% 100 ML IV SCH (10:15)
[2017-02-23 11:44] VITALS: BP 142/76
--- NOTE | 2017-02-23 14:52 | Discharge Summary ---
Hospital Course - Hospital Course Hospital Course: His hospitalization included patient admitted from the clinic due to increased left facial swelling due to a dental abscess. Patient was started on broad- spectrum antibiotics blood cultures were drawn as well. Initial blood cultures have been negative. She had a CT head and neck that showed evidence of a dental abscess. Dr. Jasso was consulted and patient was consented to undergo dental abscess drainage. Moreover Dr. Dean with ophthalmology was also consulted due to the injected eye and eyelid swelling. Patient continued to respond to IV fluids and IV antibiotics. The swelling continued to improve after the dental abscess was relieved. Patient continued to do well. Serum potassium was supplemented during this hospitalization. Moreover serum magnesium was supplemented. Her serum creatinine remained stable at 0.9. No fevers or chills. She is continued to do well and is and swelling has continued to improve. At this time she is reached maximal hospitalization and is prepared for discharge. She will follow-up in outpatient clinic. Diagnosis - Discharge Diagnosis (1) Renal transplant recipient Status: Chronic (2) Dental abscess Status: Resolved (3) Hypertension Status: Chronic (4) Gout Status: Chronic (5) Hypokalemia Status: Resolved Discharge Plan - Discharge Data Disposition: Disch To Home/Self Care Condition at Discharge: Stable Discharge Diet: advance to your usual diet Activity: resume usual activities as tolerated Hygiene: no restrictions - Discharge Medications New HYDROcodone/ACETAMIN 7.5-325 [[place] 7.5-325] 1 tablet PO Q4H PRN #30 tablet PRN Reason: Pain Neomycin/Polymyx/Hc Oph Susp [Cortisporin Oph Susp] 2 drop LEFT EYE QID bottle Polyvinyl Alcohol 1.4% Oph Bernie [Artificial Tears Oph Soln] 2 drop LEFT EYE QID PRN #0 bottle PRN Reason: Dry Eyes Chlorhexidine 0.12% Oral Rinse [Peridex] 15 ml SWISH/SPIT BID #1 bottle Continue Ergocalciferol (Vitamin D2) [Vitamin D2] 1,000 unit PO DAILY Tacrolimus Cap [Prograf Cap] 0.5 mg PO BID Omeprazole [Prilosec] 40 mg PO BID Magnesium Chloride [Mag Delay] 64 mg PO TID Furosemide Tab [Lasix Tab] 20 mg PO BID Mycophenolate Mofetil [Cellcept] 1,000 mg PO BID Colchicine [Colcrys] 0.6 mg PO DAILY PRN PRN Reason: Gout Aspirin [Ecotrin] 81 mg PO DAILY Carvedilol [Coreg] 25 mg PO BID Estradiol [Estradiol Tab] 2 mg PO DAILY metFORMIN [Glucophage] 500 mg PO DAILY W/SUPPER Hydrocodone/Acetaminophen [Hydrocodon-Acetaminoph 7.5-325] 1 tablet PO Q4HR PRN PRN Reason: Pain amLODIPine [Norvasc] 5 mg PO BID Simvastatin 20 mg PO BEDTIME Amoxicillin/Potassium Clav [Amox-Clav 875-125 mg Tablet] 875 mg PO BID #28 - Follow Up or Referral - Forms/Instructions Additional Discharge Instructions: Follow-up with Dr. Burton in [address] Dean in [address] Duran in 2 weeks with a BMP. Exam - Constitutional Vitals: Period Temp Pulse Resp BP Sys/Correa Pulse Ox Last 24 Hr 97.2 F-98.8 F 70-79 18-20 142-158/72-82 93-100 General appearance: over weight - Head Head exam: Present: other (Facial swelling is continuing to improve) - Eye Eye exam: Present: other (Eyelid swelling continues to improve) Pupils: Present: LIZ - Respiratory Respiratory exam: Present: clear to auscultation bilaterally - Cardiovascular Cardiovascular exam: Present: regular rate and rhythm - GI/Abdominal GI/Abdominal exam: Present: normal bowel sounds - Back Exam Back exam: Present: normal inspection - Neurological Exam Neurological exam: Present: alert, oriented X3, CN II-XII intact - Psychiatric Psychiatric exam: Present: normal affect, normal mood - Skin Skin exam: Present: normal color Discharge Results Labs on day of discharge: Labs from last 24 hours 02/23/17 02/23/17 02/23/17 11:19 07:05 06:07 Sodium 139 Potassium 3.6 Chloride 104 Carbon Dioxide 26 Anion Gap 12.6 BUN 6 L Creatinine 0.90 GFR Calculation 122 BUN/Creatinine Ratio 6.00 Glucose 148 H POC Glucose 198 H 156 H Calculated Osmolality 277.5 Calcium 9.1 Magnesium 1.4 L 02/22/17 16:18 Sodium Potassium Chloride Carbon Dioxide Anion Gap BUN Creatinine GFR Calculation BUN/Creatinine Ratio Glucose POC Glucose 165 H Calculated Osmolality Calcium Magnesium DS: Provider Date of admission: 02/17/17 14:27 Primary care physician: Savage Duran Jr., MD Attending physician on admission: Savage Duran Jr., MD Consults: 02/17/17 14:27 Consult to Physician [CONS] Routine Comment: dental abscess Consulting Provider: Willy Jasso When should Consulting Provider be notified: Now Person Notified: [email or web address] Date Notified: 02/18/17 Time Notified: 12:04 02/17/17 14:46 Consult to Physician [CONS] Routine Comment: facial swelling, eye swelling in renal transplant Consulting Provider: Trent Dean When should Consulting Provider be notified: Now Person Notified: [email or web address] Date Notified: 02/18/17 Time Notified: 11:59 02/17/17 15:45 Consult to Pharmacy [CONS] Routine Reason for Pharmacy Consult: Adjust Meds Renal Funct Discharging clinician: Savage Duran Jr., MD
--- NOTE | 2017-03-05 15:38 | Operative Note ---
DATE: 02/19/2017 PREOPERATIVE DIAGNOSIS: LEFT MAXILLARY CANINE SPACE ABSCESS, CARIES TEETH # 12 and 13. POSTOPERATIVE DIAGNOSIS: LEFT MAXILLARY CANINE SPACE ABSCESS, CARIES TEETH # 12 and 13. OPERATION PERFORMED: 1. Incision and drainage left maxillary canine space abscess. 2. Extraction of caries teeth # 12 and 13. SURGEON: Willy Jasso DMD MD ANESTHESIA: General via orotracheal tube. DESCRIPTION OF OPERATION: The patient was taken to the operating area in a sedated condition and pl aced in a supine position on the operating room table. After the successful induction of anesthesia and the placement of an oral endotracheal tube, the patient was prepped and draped in the usual man ner for an intraoral surgical procedure. Attention was directed intraorally. The oropharynx was smith ctioned free of any secretions and debris. A moistened throat pack was placed about the endotrachea l tube. Lidocaine 2% with 1:100,000 epinephrine was then infiltrated in the right labial areas. Af ter the placement of local anesthetic a # 15 blade was used to make a mucoperiosteal flap to expose the teeth # 12 and 13. Both teeth # 12 and 13 were extracted without any complications. Blunt diss ection was done about the left maxilla all the way up to the infraorbital rim to expose open up the canine space. There was approximately 5 cc of serosanguineous drainage removed, copious normal sali ne solution was used for irrigation and the entire area was left open to continue to drain. The brionna stened throat pack was removed and the patient tolerated the procedure very well, extubated in the o perating room, and transferred to the recovery area in a stable condition.
== END 2017-02-23 15:40 | disposition home or self-care (01) | DRG 158 ==
LOC: N.5E 14:27
PROVIDERS: ADMIT Internal Medicine Nephrology; ATTEND Internal Medicine Nephrology

== ENCOUNTER 2020-09-03 11:14 | Observation (INO) ==
[2020-09-03] MEDS ORDERED: ASPIRIN 325 MG TABLET PO STA (11:43)
[2020-09-03] MEDS ORDERED: KETOROLAC 30 MG/1 ML VIAL IV STA (11:44)
[2020-09-03 11:54] LABS: Basophils % 0.4 % (0.0-0.8); Eosinophils # 0.1 10*3/uL (0.0-0.87); Hematocrit 30.9 VOL% (35.7-47.0); Hemoglobin 9.5 GM/DL (12.0-16.0); Immature Granulocytes % 0.3 %; Immature Granulocytes Absolute 0.02 #; Lymphocytes # 1.4 10*3/uL (1.4-4.0); Lymphocytes % 21.4 % (21.3-54.2); Mean Corpuscular HGB Conc 30.7 GM/DL (32-36); Mean Corpuscular Volume 92.2 FL (87-102); Mean Platelet Volume 11.9 FL (9.6-12.0); Monocytes % 7.9 % (1.7-12.7); Platelet Count 226 T/CUMM (130-400); Red Blood Count 3.35 MC/CUMM (3.8-5.5); Red Cell Distribution Width 12.7 % (9.3-17.3); White Blood Count 6.7 T/CUMM (4-12)
[2020-09-03 12:00] LABS: PT Patient Result 10.9 SECS (9.8-11.9)
[2020-09-03 12:07] LABS: Albumin 3.3 G/DL (3.4-5.0); Bilirubin,Total 0.4 MG/DL (0.2-1.0); Calcium 9.8 MG/DL (8.5-10.1); Osmolality,Calculated 283.7 MOS/KG (273-304); Total Protein 7.3 G/DL (6.4-8.3)
[2020-09-03 13:52] LABS: Barbiturates Screen,Urine Negative (Negative); Benzodiazepines Screen,Urine Negative (Negative); Cannabinoid Screen,Urine Negative (Negative); Opiate Screen,Urine Negative (Negative); Phencyclidine Screen,Urine Negative (Negative)
[2020-09-03] MEDS ORDERED: ACETAMINOPHEN 325 MG TABLET PO PRN (14:05)
[2020-09-03] MEDS ORDERED: MORPHINE 4 MG/1 ML VIAL IV PRN (14:05)
[2020-09-03] MEDS ORDERED: GLUCAGON 1 MG VIAL IM PRN (14:05)
[2020-09-03] MEDS ORDERED: DEXTROSE 50% 25 GM/50 ML VIAL IV PRN (14:05)
[2020-09-03] MEDS ORDERED: ONDANSETRON 4 MG/2 ML VIAL IV PRN (14:05)
[2020-09-03] MEDS ORDERED: POTASSIUM CHLORIDE 20 MEQ TABLET PO STA (14:07)
[2020-09-03 14:48] LABS: Thyroid Stimulating Hormone 1.83 uIU/ml (0.358-3.74)
[2020-09-03] MEDS: INSULIN REGULAR 100 UNIT/ML SUBCUT SCH ×2 (16:50→21:01)
[2020-09-03 16:54] LABS: Hypochromasia 2+
[2020-09-03 16:55] LABS: Platelet Estimate Normal
[2020-09-03] MEDS ORDERED: COLCHICINE 0.6 MG CAPSULE PO ONE (17:00)
[2020-09-03] MEDS: SODIUM CHLORIDE 0.9% 1,000 ML IV SCH (17:04)
[2020-09-03] MEDS: ENOXAPARIN 40 MG/0.4 ML SYRINGE SUBCUT SCH (17:04)
[2020-09-04] MEDS: SODIUM CHLORIDE 0.9% 1,000 ML IV SCH (02:37)
[2020-09-04 05:58] LABS: Basophils % 0.3 % (0.0-0.8); Eosinophils # 0.1 10*3/uL (0.0-0.87); Hematocrit 27.3 VOL% (35.7-47.0); Hemoglobin 8.4 GM/DL (12.0-16.0); Immature Granulocytes % 0.3 %; Immature Granulocytes Absolute 0.02 #; Lymphocytes # 1.9 10*3/uL (1.4-4.0); Lymphocytes % 33.6 % (21.3-54.2); Mean Corpuscular HGB Conc 30.8 GM/DL (32-36); Mean Corpuscular Volume 92.2 FL (87-102); Mean Platelet Volume 12.4 FL (9.6-12.0); Monocytes % 8.7 % (1.7-12.7); Neutrophils % 56.1 % (38.7-73.9); Platelet Count 188 T/CUMM (130-400); Red Blood Count 2.96 MC/CUMM (3.8-5.5); Red Cell Distribution Width 12.7 % (9.3-17.3); White Blood Count 5.7 T/CUMM (4-12)
[2020-09-04 05:59] LABS: Calcium 9.3 MG/DL (8.5-10.1); Osmolality,Calculated 286.3 MOS/KG (273-304); Risk Ratio 3.95; VLDL CHOLESTEROL 25.8 MG/DL
[2020-09-04 06:10] LABS: Eosinophils 2 % (0-10); Hypochromasia 1+; Lymphocytes 29 % (20-55); Microcytosis 1+; Ovalocytes Slight; Platelet Estimate Adequate; Segmented Neutrophils 60 % (50-85); Total Cells Counted 100
[2020-09-04] MEDS: INSULIN REGULAR 100 UNIT/ML SUBCUT SCH ×2 (07:37→13:27)
[2020-09-04] MEDS ORDERED: METAXALONE 800 MG TABLET PO ONE (10:15)
[2020-09-04] MEDS ORDERED: COLCHICINE 0.6 MG CAPSULE PO ONE ×2 (10:15→16:00)
[2020-09-04] MEDS ORDERED: oxyCODONE/ACETAMINOPHEN 5-325 MG TABLET PO ONE (11:00)
[2020-09-04 11:29] VITALS: BP 174/71
[2020-09-04] MEDS ORDERED: TACROLIMUS 0.5 MG CAPSULE PO SCH ×2 (12:00→21:00)
[2020-09-04] MEDS ORDERED: CLOPIDOGREL 75 MG TABLET PO SCH (12:00)
[2020-09-04] MEDS ORDERED: MAGNESIUM SULF RIDER 4 GM in PREMIX 1 EACH IV ONE (12:00)
[2020-09-04] MEDS ORDERED: DEXAMETHASONE 4 MG/1 ML VIAL IV ONE (12:00)
[2020-09-04] MEDS ORDERED: POTASSIUM CHLORIDE 20 MEQ TABLET PO ONE (12:00)
[2020-09-04] MEDS ORDERED: ESTRADIOL 1 MG TABLET PO SCH (12:00)
[2020-09-04] MEDS ORDERED: NEBIVOLOL 10 MG TABLET PO SCH (12:00)
[2020-09-04] MEDS ORDERED: MYCOPHENOLATE MOFETIL 250 MG CAPSULE PO SCH (12:00)
[2020-09-04] MEDS ORDERED: FUROSEMIDE 80 MG TABLET PO SCH (12:00)
[2020-09-04] MEDS ORDERED: hydroCHLOROthiazide 12.5 MG CAPSULE PO SCH (12:00)
[2020-09-04] MEDS ORDERED: ASPIRIN EC 81 MG TABLET PO SCH (12:00)
[2020-09-04] MEDS ORDERED: MAGNESIUM CHLORIDE 64 MG TABLET PO SCH (15:00)
[2020-09-04] MEDS ORDERED: FUROSEMIDE 40 MG TABLET PO SCH (16:00)
[2020-09-04] MEDS: ENOXAPARIN 40 MG/0.4 ML SYRINGE SUBCUT SCH (16:14)
[2020-09-04] MEDS ORDERED: glipiZIDE 5 MG TABLET PO SCH (17:00)
[2020-09-04] MEDS ORDERED: SIMVASTATIN 20 MG TABLET PO SCH (21:00)
[2020-09-04] MEDS ORDERED: GABAPENTIN 300 MG CAPSULE PO SCH (21:00)
[2020-09-05] MEDS ORDERED: PANTOPRAZOLE 40 MG TABLET PO SCH (06:30)
[2020-09-05] MEDS ORDERED: CHOLECALCIFEROL 5,000 UNIT TABLET PO SCH (09:00)
== END 2020-09-04 16:45 | disposition home or self-care (01) ==
LOC: N.EDINP 11:14 → N.ED 11:14 → N.EDINP 16:15 → N.3E 16:25
PROVIDERS: ADMIT Internal Medicine; ATTEND Internal Medicine